=== PATIENT | male | born 1975 ===

== ENCOUNTER 2018-07-30 05:23 | Inpatient (IN) | payer OTHER ==
[2018-07-30 06:03] LABS: Basophils # (Auto) 0.1 K/mm3 (0.0-0.1); Basophils % (Auto) 0.4 % (0.0-1.8); Eosinophils # (Auto) 0.2 K/mm3 (0.0-0.4); Hematocrit 43.7 % (35.5-45.6); Hemoglobin 15.3 gm/dl (11.8-15.2); Lymphocytes # (Auto) 2.9 K/mm3 (1.2-5.4); Lymphocytes % (Auto) 19.3 % (13.4-35.0); Mean Corpuscular HGB Conc 35 % (32-34); Mean Corpuscular Volume 87 fl (84-94); Monocytes # (Auto) 0.9 K/mm3 (0.0-0.8); Monocytes % (Auto) 5.8 % (0.0-7.3); Platelet Count 233 K/mm3 (140-440); Red Blood Count 5.04 M/mm3 (3.65-5.03); Red Cell Distribution Width 12.8 % (13.2-15.2)
[2018-07-30 06:20] LABS: Alanine Aminotransferase 14 units/L (7-56); Albumin 4.3 g/dL (3.9-5); BUN/Creatinine Ratio 17; Blood Urea Nitrogen 12 mg/dL (9-20); Calcium 9.4 mg/dL (8.4-10.2); Hemolysis Index 14
[2018-07-30] MEDS ORDERED: DILAUDID IV ONE ×2 (06:38→11:50)
[2018-07-30] MEDS ORDERED: NACL 0.9% 1000 ML 1,000 ML IV ONE (06:38)
[2018-07-30] MEDS ORDERED: ZOFRAN IV ONE (06:38)
--- NOTE | 2018-07-30 06:39 | Emergency Department Report ---
ED Abdominal Pain HPI - General Chief Complaint: Abdominal Pain Stated Complaint: ABD PAIN Time Seen by Provider: 07/30/18 06:32 Source: patient, family Mode of arrival: Ambulatory Limitations: No Limitations - History of Present Illness Initial Comments: Patient is a 42-year-old male that S emergency room with complaints of upper abdominal pain and nausea vomiting. Patient states his upper abdominal pain started 2 weeks ago. Patient states her last 2 weeks his abdominal pain has been intermittent but 5 hours ago it became constant. Patient states the pain in his abdomen is out of 10. Patient states he also had nausea and vomiting but the nausea and vomiting going on for only 5 hours. Patient denies blood in his stool and blood in his vomitus. Patient denies fever and chills. Patient states the pain is better with rest and worse with eating and movement. MD Complaint: abdominal pain -: Sudden Location: LUQ, RUQ Radiation: none Migration to: no migration Severity: severe Severity scale (0 -10): 10 Quality: stabbing Consistency: constant Improves With: rest Worsens With: eating, movement Associated Symptoms: nausea, vomiting. denies: diarrhea, fever, chills, constipation, dysuria, hematemesis, hematochezia, melena, hematuria, syncope - Related Data Home Medications Medication Instructions Recorded Confirmed Last Taken No Known Home Medications [No 07/30/18 07/30/18 Unknown Reported Home Medications] Allergies Allergy/AdvReac Type Severity Reaction Status Date / Time No Known Allergies Allergy Unverified 07/30/18 05:34 ED Review of Systems ROS: Stated complaint: ABD PAIN Other details as noted in HPI Constitutional: denies: chills, fever Eyes: denies: eye pain, eye discharge, vision change ENT: denies: ear pain, throat pain Respiratory: denies: cough, shortness of breath, wheezing Cardiovascular: denies: chest pain, palpitations Endocrine: no symptoms reported Gastrointestinal: denies: abdominal pain, nausea, diarrhea Genitourinary: denies: urgency, dysuria Musculoskeletal: denies: back pain, joint swelling, arthralgia Skin: denies: rash, lesions Neurological: denies: headache, weakness, paresthesias Psychiatric: denies: anxiety, depression Hematological/Lymphatic: denies: easy bleeding, easy bruising ED Past Medical Hx - Past Medical History Previous Medical History?: Yes Hx Diabetes: Yes - Surgical History Past Surgical History?: No - Family History Family history: no significant - Social History Smoking Status: Current Every Day Smoker Substance Use Type: None - Medications Home Medications: Home Medications Medication Instructions Recorded Confirmed Last Taken Type No Known Home Medications [No 07/30/18 07/30/18 Unknown History Reported Home Medications] ED Physical Exam - General Limitations: No Limitations General appearance: alert, in no apparent distress - Head Head exam: Present: atraumatic, normocephalic - Eye Eye exam: Present: normal appearance - ENT ENT exam: Present: mucous membranes moist - Neck Neck exam: Present: normal inspection - Respiratory Respiratory exam: Present: normal lung sounds bilaterally. Absent: respiratory distress - Cardiovascular Cardiovascular Exam: Present: regular rate, normal rhythm. Absent: systolic murmur, diastolic murmur, rubs, gallop - GI/Abdominal GI/Abdominal exam: Present: soft, tenderness (bilateral upper abdomen tenderness to palpation), normal bowel sounds - Rectal Rectal exam: Present: deferred - Extremities Exam Extremities exam: Present: normal inspection - Back Exam Back exam: Present: normal inspection - Neurological Exam Neurological exam: Present: alert, oriented X3 - Psychiatric Psychiatric exam: Present: normal affect, normal mood - Skin Skin exam: Present: warm, dry, intact, normal color. Absent: rash ED Course Vital Signs 07/30/18 07/30/18 07/30/18 05:28 06:40 06:52 Temperature 98.4 F 98.1 F Pulse Rate 58 L 58 L Respiratory 16 16 16 Rate Blood Pressure 188/91 Blood Pressure 174/88 [Left] O2 Sat by Pulse 100 100 Oximetry 07/30/18 07/30/18 07/30/18 07:01 08:45 10:00 Temperature Pulse Rate 67 56 L 79 Respiratory 13 25 H 13 Rate Blood Pressure 166/78 158/84 148/77 Blood Pressure [Left] O2 Sat by Pulse 97 98 97 Oximetry 07/30/18 07/30/18 11:31 12:15 Temperature Pulse Rate 64 70 Respiratory 22 19 Rate Blood Pressure 132/77 143/75 Blood Pressure [Left] O2 Sat by Pulse 97 95 Oximetry - Reevaluation(s) Reevaluation #1: Patient states his pain is better. Patient CT back and shows gallbladder phonation. Patient will have an ultrasound done. Patient agrees with plan of care. 07/30/18 09:22 - Consultations Consultation #1: General surgery paged 07/30/18 08:57 General surgery paged again 07/30/18 11:[address] Silveira. Dr. Silveira agrees with admission and clinical findings. 07/30/18 12:13 Consultation #2: Hospitalist consulted for admission. Hospitalist to admit patient. Hospitalist to assume care patient. 07/30/18 11:27 ED Medical Decision Making - Lab Data Result diagrams: 07/30/18 05:51 07/30/18 05:51 - Radiology Data Radiology results: report reviewed CT ABDOMEN PELVIS WITH CONTRAST: HISTORY: abdominal pain. COMPARISON: none. TECHNIQUE: Helical CT in 1.25mm intervals following IV contrast. Sagittal and coronal reconstructions. FINDINGS: Lung bases: Normal. Liver: The superior right hepatic lobe is cut off the [id number]. The visualized liver is normal otherwise. Biliary system: Mild diffuse gallbladder wall edema is suspected. There is suggestion of a noncalcified stone or debris in the neck of the gallbladder. The common bile duct and intrahepatic ducts are normal. Pancreas: Normal. Spleen: Normal. Kidneys/ureters/bladder: Normal. Adrenal glands: Normal. Aorta: Normal. Intestines: Normal. Appendix: Normal. Pelvic viscera: Normal. Ascites: None. Adenopathy: None. Musculoskeletal: Intact. IMPRESSION: Mild diffuse gallbladder wall thickening is identified. Suggestion of sludge or noncalcified stone in the gallbladder. Correlate for biliary symptoms. Ultrasound could provide additional information if needed. PROCEDURE: US ABDOMEN LIMITED TECHNIQUE: Grayscale and Doppler imaging of the right upper quadrant of the abdomen was performed. HISTORY: ruq paim. COMPARISONS: None FINDINGS: Pancreas: Mildly indistinct and echogenic pancreatic head and body. The tail is obscured by overlying bowel gas. Liver appearance: Normal echogenicity. No focal internal lesion.No biliary ducta l dilatation. CBD: 4.2mm. Gallbladder: There is a sludge ball within the gallbladder measures up to 2.7 cm. There is mild gallbladder wall thickening measuring up to 6 mm. There is no pericholecystic fluid. Right kidney length: 11cm. Right kidney appearance: Normal cortical thickness. No hydronephrosis. No echogenic focus or mass. IMPRESSION: Mildly indistinct and echogenic pancreatic head and body. Findings are nonspecific, but can be seen in the setting of pancreatitis. Recommend correlation with pancreatic enzymes Sludge ball within the gallbladder. Mild gallbladder wall thickening. Findings are nonspecific. Differential diagnosis includes acute cholecystitis or intrinsic liver disease. - Medical Decision Making Patient is a 42-year-old male that presents emergency room with complaints of right upper quadrant pain. Patient found to have elevated white count. Patient also complained of nausea vomiting. Patient given pain medication and antiemetics. Patient had a CT of the abdomen done which show gallbladder thickening. Follow up study done with a ultrasound to ensure no obstruction was noted. LFTs normal. Patient to be admitted to the hospitalist service. General surgery consult for acute cholecystitis and possible gall bladder removal. - Differential Diagnosis acute cholecystitis. Gallbladder dysfunct. upper abd pain. N/D Critical Care Time: Yes Critical care attestation.: If time is entered above; I have spent that time in minutes in the direct care of this critically ill patient, excluding procedure time. Critical Care Time: 35 minutes ED Disposition Clinical Impression: Acute cholecystitis Abdominal pain Qualifiers: Abdominal location: upper abdomen, unspecified Qualified Code(s): R10.10 - Upper abdominal pain, unspecified Nausea & vomiting Qualifiers: Vomiting type: unspecified Vomiting Intractability: intractable Qualified Code(s): R11.2 - Nausea with vomiting, unspecified Disposition: DC-09 OP ADMIT IP TO THIS HOSP Is pt being admited?: Yes Does the pt Need Aspirin: No Condition: Critical Time of Disposition: 11:28
[2018-07-30 06:57] LABS: Bilirubin,Urine NEG (Negative); Blood,Urine SM (Negative); Color,Urine Straw (Yellow); Protein,Urine <15 mg/dL mg/dL (Negative); Urobilinogen,Urine < 2.0 mg/dL (<2.0); WBC,Urine < 1.0 /HPF (0.0-6.0)
--- NOTE | 2018-07-30 08:47 | Cat Scan Report ---
CT ABDOMEN PELVIS WITH CONTRAST: HISTORY: abdominal pain. COMPARISON: none. TECHNIQUE: Helical CT in 1.25mm intervals following IV contrast. Sagittal and coronal reconstructions. FINDINGS: Lung bases: Normal. Liver: The superior right hepatic lobe is cut off the [id number]. The visualized liver is normal otherwise. Biliary system: Mild diffuse gallbladder wall edema is suspected. There is suggestion of a noncalcified stone or debris in the neck of the gallbladder. The common bile duct and intrahepatic ducts are normal. Pancreas: Normal. Spleen: Normal. Kidneys/ureters/bladder: Normal. Adrenal glands: Normal. Aorta: Normal. Intestines: Normal. Appendix: Normal. Pelvic viscera: Normal. Ascites: None. Adenopathy: None. Musculoskeletal: Intact. IMPRESSION: Mild diffuse gallbladder wall thickening is identified. Suggestion of sludge or noncalcified stone in the gallbladder. Correlate for biliary symptoms. Ultrasound could provide additional information if needed.
[2018-07-30] MEDS ORDERED: ZOSYN/NS 3.375GM/50ML 3.375 GM/50 ML BAG IV ONE (09:00)
--- NOTE | 2018-07-30 10:25 | Ultrasound Report ---
PROCEDURE: US ABDOMEN LIMITED TECHNIQUE: Grayscale and Doppler imaging of the right upper quadrant of the abdomen was performed. HISTORY: ruq paim. COMPARISONS: None FINDINGS: Pancreas: Mildly indistinct and echogenic pancreatic head and body. The tail is obscured by overlying bowel gas. Liver appearance: Normal echogenicity. No focal internal lesion.No biliary ductal dilatation. CBD: 4.2mm. Gallbladder: There is a sludge ball within the gallbladder measures up to 2.7 cm. There is mild gallb ladder wall thickening measuring up to 6 mm. There is no pericholecystic fluid. Right kidney length: 11cm. Right kidney appearance: Normal cortical thickness. No hydronephrosis. No echogenic focus or mass. IMPRESSION: Mildly indistinct and echogenic pancreatic head and body. Findings are nonspecific, but can be seen i n the setting of pancreatitis. Recommend correlation with pancreatic enzymes Sludge ball within the gallbladder. Mild gallbladder wall thickening. Findings are nonspecific. Diffe rential diagnosis includes acute cholecystitis or intrinsic liver disease. This document is electronically signed by Mónica Perry MD., July 30 2018 10:23:09 AM ET
[2018-07-30] MEDS ORDERED: DILAUDID ONE (11:52)
--- NOTE | 2018-07-30 18:44 | Consultation ---
History of Present Illness Consult date: 07/30/18 Reason for consult: abdominal pain Requesting physician: MICHELE SUN III Chief complaint: abdominal pain - History of present illness History of present illness: 42yo Mexican speaking gentleman presents with 1 month history of upper abdominal pain and back pain. Some nausea. Pain exacerbated by greasy foods. Pain worsened over last few days. ED w/u revealed thickened GB with sludge. No F/C. Pain persists now. +bloating. no diarrhea. 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 denies: alcohol abuse (occasional use), prescription drug abuse, IV drug use Family history: no significant family history Medications and Allergies Allergies Allergy/AdvReac Type Severity Reaction Status Date / Time No Known Allergies Allergy Unverified 07/30/18 05:34 Home Medications Medication Instructions Recorded Confirmed Last Taken Type No Known Home Medications [No 07/30/18 07/30/18 Unknown History Reported Home Medications] Review of Systems - Constitutional no fever, no chills - Cardiovascular no chest pain, no shortness of breath - Respiratory no cough - Gastrointestinal abdominal pain, nausea, dyspepsia/bloating, no vomiting, no diarrhea, no hematemesis, no coffee ground emesis, no BRBPR, no melena, no hematochezia Exam Vital Signs Temp Pulse Resp BP Pulse Ox 98.4 F 58 L 16 188/91 100 07/30/18 05:28 07/30/18 05:28 07/30/18 05:28 07/30/18 05:28 07/30/18 05:28 - General physical appearance Positive: no distress, no pain, other (Mexican speaking, pleasant gentleman) - Eyes Positive: normal occular movement. Negative: icteric - Respiratory Positive: normal expansion, normal respiratory effort, clear to auscultation - Cardiovascular Rhythm: regular - Abdomen Abdomen: Present: soft. Absent: tender, distended, guarding, rigid, wound, surgical scars - Integumentary no rash, no growths, no abnormal pigmentation - Neurologic Neurologic: alert and oriented to time, place and person - Psychiatric Psychiatric: appropriate mood/affect, intact judgment & insight, cooperative Results - Labs 07/30/18 05:51 07/30/18 05:51 Abnormal lab results 07/30/18 07/30/18 07/30/18 Range/Units 05:40 05:51 05:51 WBC 15.1 H (4.5-11.0) K/mm3 RBC 5.04 H (3.65-5.03) M/mm3 Hgb 15.3 H (11.8-15.2) gm/dl MCHC 35 H (32-34) % RDW 12.8 L (13.2-15.2) % Nance # 0.9 H (0.0-0.8) K/mm3 Seg Neutrophils % 73.5 H (40.0-70.0) % Seg Neutrophils # 11.1 H (1.8-7.7) K/mm3 Chloride 97.9 L (98-107) mmol/L Creatinine 0.7 L (0.8-1.5) mg/dL Glucose 419 H (75-100) mg/dL POC Glucose 381 H (70-105) Diabetes panel 07/30/18 Range/Units 05:51 Sodium 137 (137-145) mmol/L Potassium 4.0 (3.6-5.0) mmol/L Chloride 97.9 L (98-107) mmol/L Carbon Dioxide 24 (22-30) mmol/L BUN 12 (9-20) mg/dL Creatinine 0.7 L (0.8-1.5) mg/dL Glucose 419 H (75-100) mg/dL Calcium 9.4 (8.4-10.2) mg/dL AST 14 (5-40) units/L ALT 14 (7-56) units/L Alkaline Phosphatase 80 (35-129) units/L Total Protein 7.1 (6.3-8.2) g/dL Albumin 4.3 (3.9-5) g/dL Calcium panel 07/30/18 Range/Units 05:51 Calcium 9.4 (8.4-10.2) mg/dL Albumin 4.3 (3.9-5) g/dL Pituitary panel 07/30/18 Range/Units 05:51 Sodium 137 (137-145) mmol/L Potassium 4.0 (3.6-5.0) mmol/L Chloride 97.9 L (98-107) mmol/L Carbon Dioxide 24 (22-30) mmol/L BUN 12 (9-20) mg/dL Creatinine 0.7 L (0.8-1.5) mg/dL Glucose 419 H (75-100) mg/dL Calcium 9.4 (8.4-10.2) mg/dL Adrenal panel 07/30/18 Range/Units 05:51 Sodium 137 (137-145) mmol/L Potassium 4.0 (3.6-5.0) mmol/L Chloride 97.9 L (98-107) mmol/L Carbon Dioxide 24 (22-30) mmol/L BUN 12 (9-20) mg/dL Creatinine 0.7 L (0.8-1.5) mg/dL Glucose 419 H (75-100) mg/dL Calcium 9.4 (8.4-10.2) mg/dL Total Bilirubin 0.90 (0.1-1.2) mg/dL AST 14 (5-40) units/L ALT 14 (7-56) units/L Alkaline Phosphatase 80 (35-129) units/L Total Protein 7.1 (6.3-8.2) g/dL Albumin 4.3 (3.9-5) g/dL - Imaging CT scan - abdomen: report reviewed, image reviewed CT scan - pelvis: report reviewed, image reviewed US - abdomen: report reviewed, image reviewed Assessment and Plan - Patient Problems (1) Cholecystitis Current Visit: Yes Status: Acute Plan to address problem: Pt stable. By history, this sounds more like chronic cholecystitis. He may have acute on chronic cholecystitits. Gave various options. Pt would like to have surgery. Procedure, risks, benefits discussed for robotic assisted cholecystectomy. All questions answered. Consent obtained. Will work on scheduling surgery. Please call with questions. Time=30min
--- NOTE | 2018-07-30 20:04 | History and Physical Report ---
History of Present Illness Date of examination: 07/30/18 Date of admission: 07/30/18 11:30 Chief complaint: Right upper quadrant pain for 2 weeks History of present illness: 42-year-old Estonian-speaking male with no significant past medical history except diabetes comes in for right upper quadrant pain of 2 weeks' duration. Right upper quadrant pain is about 10 on a scale of 1-10 associated with nausea and vomiting intermittently. Has been constant for the last few hours. Vomited 3-4 times. No fever or chills. No exacerbating or relieving factors. Exacerb ated by eating Past Medical History Previous Medical History?: Yes Hx Diabetes: Yes Surgical History Past Surgical History?: No Family History Family history: no significant Social History Smoking Status: Current Every Day Smoker Substance Use Type: None Medications Home Medications: Home Medications Medication Instructions Recorded Confirmed Last Taken Type No Known Home Medications [No 07/30/18 07/30/18 Unknown History Reported Home Medications] Review of Systems ROS: Stated complaint: ABD PAIN Other details as noted in HPI Constitutional: denies: chills, fever Eyes: denies: eye pain, eye discharge, vision change ENT: denies: ear pain, throat pain Respiratory: denies: cough, shortness of breath, wheezing Cardiovascular: denies: chest pain, palpitations Endocrine: no symptoms reported Gastrointestinal: Right upper quadrant pain and nausea and vomiting. Pain is 10 on a scale of 1-10 Genitourinary: denies: urgency, dysuria Musculoskeletal: denies: back pain, joint swelling, arthralgia Skin: denies: rash, lesions Neurological: denies: headache, weakness, paresthesias Psychiatric: denies: anxiety, depression Hematological/Lymphatic: denies: easy bleeding, easy bruising 14 point review of systems and otherwise negative Medications and Allergies Allergies Allergy/AdvReac Type Severity Reaction Status Date / Time No Known Allergies Allergy Unverified 07/30/18 05:34 Home Medications Medication Instructions Recorded Confirmed Last Taken Type No Known Home Medications [No 07/30/18 07/30/18 Unknown History Reported Home Medications] Active Meds: Active Medications Acetaminophen/Hydrocodone Bitart ([place] 5/325) 2 each PO Q6H PRN PRN Reason: Pain, Moderate (4-6) Hydromorphone HCl (Dilaudid) 0.5 mg IV Q3H PRN PRN Reason: Pain , Severe (7-10) Exam - Constitutional Vitals: Temp Pulse Resp BP Pulse Ox 98 F 59 L 18 155/80 97 07/30/18 16:04 07/30/18 16:04 07/30/18 16:04 07/30/18 16:04 07/30/18 15:56 General appearance: Present: mild distress, well-nourished - EENT Eyes: Present: PERRL ENT: hearing intact, clear oral mucosa - Neck Neck: Present: supple, normal ROM - Respiratory Respiratory effort: normal Respiratory: bilateral: CTA - Cardiovascular Heart rate: 88 Rhythm: regular Heart Sounds: Present: S1 & S2. Absent: rub, click - Extremities Extremities: no ischemia, pulses intact, pulses symmetrical, No edema Peripheral Pulses: within normal limits - Abdominal General gastrointestinal: Present: soft, tender, non-distended, normal bowel sounds Localized gastrointestinal: tender: RUQ, guarding: RUQ, rebound: RUQ Male genitourinary: Present: normal - Rectal Rectal Exam: deferred - Integumentary Integumentary: Present: clear, warm, dry - Musculoskeletal Musculoskeletal: gait normal, strength equal bilaterally - Psychiatric Psychiatric: appropriate mood/affect, intact judgment & insight - Neurologic Neurologic: CNII-XII intact, moves all extremities Results - Labs CBC & Chem 7: 07/30/18 05:51 07/30/18 05:51 Labs: Laboratory Last Values WBC 15.1 K/mm3 (4.5-11.0) H 07/30/18 05:51 RBC 5.04 M/mm3 (3.65-5.03) H 07/30/18 05:51 Hgb 15.3 gm/dl (11.8-15.2) H 07/30/18 05:51 Hct 43.7 % (35.5-45.6) 07/30/18 05:51 MCV 87 fl (84-94) 07/30/18 05:51 MCH 30 pg (28-32) 07/30/18 05:51 MCHC 35 % (32-34) H 07/30/18 05:51 RDW 12.8 % (13.2-15.2) L 07/30/18 05:51 Plt Count 233 K/mm3 (140-440) 07/30/18 05:51 Lymph % (Auto) 19.3 % (13.4-35.0) 07/30/18 05:51 [place] % (Auto) 5.8 % (0.0-7.3) 07/30/18 05:51 Eos % (Auto) 1.0 % (0.0-4.3) 07/30/18 05:51 Baso % (Auto) 0.4 % (0.0-1.8) 07/30/18 05:51 Lymph # 2.9 K/mm3 (1.2-5.4) 07/30/18 05:51 [place] # 0.9 K/mm3 (0.0-0.8) H 07/30/18 05:51 Eos # 0.2 K/mm3 (0.0-0.4) 07/30/18 05:51 Baso # 0.1 K/mm3 (0.0-0.1) 07/30/18 05:51 Seg Neutrophils % 73.5 % (40.0-70.0) H 07/30/18 05:51 Seg Neutrophils # 11.1 K/mm3 (1.8-7.7) H 07/30/18 05:51 Sodium 137 mmol/L (137-145) 07/30/18 05:51 Potassium 4.0 mmol/L (3.6-5.0) 07/30/18 05:51 Chloride 97.9 mmol/L (98-107) L 07/30/18 05:51 Carbon Dioxide 24 mmol/L (22-30) 07/30/18 05:51 19 mmol/L 07/30/18 05:51 BUN 12 mg/dL (9-20) 07/30/18 05:51 0.7 mg/dL (0.8-1.5) L 07/30/18 05:51 Estimated GFR > 60 ml/min 07/30/18 05:51 17 % 07/30/18 05:51 Glucose 419 mg/dL (75-100) H 07/30/18 05:51 POC Glucose 381 (70-105) H 07/30/18 05:40 Calcium 9.4 mg/dL (8.4-10.2) 07/30/18 05:51 0.90 mg/dL (0.1-1.2) 07/30/18 05:51 AST 14 units/L (5-40) 07/30/18 05:51 ALT 14 units/L (7-56) 07/30/18 05:51 80 units/L (35-129) 07/30/18 05:51 7.1 g/dL (6.3-8.2) 07/30/18 05:51 4.3 g/dL (3.9-5) 07/30/18 05:51 1.5 % 07/30/18 05:51 38 units/L (13-60) 07/30/18 05:51 Straw (Yellow) 07/30/18 Unknown Clear (Clear) 07/30/18 Unknown 6.0 (5.0-7.0) 07/30/18 Unknown Ur Specific [place] 1.018 (1.003-1.030) 07/30/18 Unknown <15 mg/dl mg/dL (Negative) 07/30/18 Unknown >=500 mg/dL (Negative) 07/30/18 Unknown Tr mg/dL (Negative) 07/30/18 Unknown Sm (Negative) 07/30/18 Unknown Neg (Negative) 07/30/18 Unknown Neg (Negative) 07/30/18 Unknown < 2.0 mg/dL (<2.0) 07/30/18 Unknown Ur Leukocyte Esterase Neg (Negative) 07/30/18 Unknown < 1.0 /HPF (0.0-6.0) 07/30/18 Unknown 1.0 /HPF (0.0-6.0) 07/30/18 Unknown U Epithel Cells (Auto) < 1.0 /HPF (0-13.0) 07/30/18 Unknown Short CBC 07/30/18 Range/Units 05:51 WBC 15.1 H (4.5-11.0) K/mm3 Hgb 15.3 H (11.8-15.2) gm/dl Hct 43.7 (35.5-45.6) % Plt Count 233 (140-440) K/mm3 BMP 07/30/18 05:51 Sodium 137 Potassium 4.0 Chloride 97.9 L Carbon Dioxide 24 BUN 12 Creatinine 0.7 L Glucose 419 H Calcium 9.4 Liver Function 07/30/18 Range/Units 05:51 Total Bilirubin 0.90 (0.1-1.2) mg/dL AST 14 (5-40) units/L ALT 14 (7-56) units/L Alkaline Phosphatase 80 (35-129) units/L Albumin 4.3 (3.9-5) g/dL Urine 07/30/18 Range/Units Unknown Urine Color Straw (Yellow) Urine pH 6.0 (5.0-7.0) Ur Specific [place] 1.018 (1.003-1.030) Urine Protein <15 mg/dl (Negative) mg/dL Urine Glucose (UA) >=500 (Negative) mg/dL - Imaging and Cardiology CT scan - abdomen: report reviewed US - abdomen: report reviewed Imaging and Cardiology: CT abdomen/pelvis IMPRESSION: Mild diffuse gallbladder wall thickening is identified. Suggestion of sludge or noncalcified stone in the gallbladder. Correlate for biliary symptoms. Ultrasound could provide additional information if needed. ABDOMEN ultrasound IMPRESSION: Mildly indistinct and echogenic pancreatic head and body. Findings are nonspecific, but can be seen in the setting of pancreatitis. Recommend correlation with pancreatic enzymes Sludge ball within the gallbladder. Mild gallbladder wall thickening. Findings are nonspecific. Differential diagnosis includes acute cholecystitis or intrinsic liver disease. Assessment and Plan Advance Directives: Yes (full code) VTE prophylaxis?: Chemical Plan of care discussed with patient/family: Yes - Patient Problems (1) SIRS (systemic inflammatory response syndrome) Current Visit: Yes Status: Acute Plan to address problem: Patient initiated on IV Zosyn for acute cholecystitis Patient has leukocytosis (2) Acute cholecystitis Current Visit: Yes Status: Acute Plan to address problem: Surgery consult requested IV Zosyn initiated Patient is kept nothing by mouth (3) Type 2 diabetes mellitus Current Visit: Yes Status: Chronic Qualifiers: Diabetes mellitus senior care insulin use: without termite treater use Plan to address problem: Accu-Cheks and high dose sliding scale coverage Check A1c Patient may need to be discharged on NovoLog mix twice a day (4) DVT prophylaxis Current Visit: Yes Status: Acute Plan to address problem: On Lovenox and GI prophylaxis
[2018-07-30] MEDS ORDERED: SODIUM CHLORIDE FLUSH SYRINGE 10 ML IV PRN (20:15)
[2018-07-30] MEDS ORDERED: REGLAN IV PRN (20:15)
[2018-07-30] MEDS ORDERED: ZOFRAN IV PRN (20:15)
[2018-07-30] MEDS ORDERED: TYLENOL PO PRN (20:15)
[2018-07-30] MEDS: NACL 0.9% 1000 ML 1,000 ML IV SCH (21:10)
[2018-07-30] MEDS: ZOSYN/NS 4.5GM/100ML 4.5 GM/100 ML VIAL IV SCH (21:10)
[2018-07-30] MEDS: PEPCID IV SCH (21:10)
[2018-07-30] MEDS: SODIUM CHLORIDE FLUSH SYRINGE 10 ML IV SCH (21:12)
[2018-07-31] MEDS ORDERED: D50W (25GM) Syringe IV PRN (00:49)
[2018-07-31] MEDS: ZOSYN/NS 4.5GM/100ML 4.5 GM/100 ML VIAL IV SCH ×3 (05:18→21:47)
[2018-07-31] MEDS: HumaLOG SUB-Q SCH ×3 (06:42→17:23)
[2018-07-31] MEDS: PEPCID IV SCH ×2 (09:49→21:53)
[2018-07-31] MEDS: SODIUM CHLORIDE FLUSH SYRINGE 10 ML IV SCH ×2 (09:51→21:53)
[2018-07-31] MEDS: NACL 0.9% 1000 ML 1,000 ML IV SCH ×2 (09:53→22:03)
[2018-07-31 10:30] LABS: Basophils % (Auto) 0.3 % (0.0-1.8); Eosinophils % (Auto) 0.3 % (0.0-4.3); Hematocrit 42.7 % (35.5-45.6); Hemoglobin 14.7 gm/dl (11.8-15.2); Lymphocytes # (Auto) 1.7 K/mm3 (1.2-5.4); Mean Corpuscular HGB Conc 34 % (32-34); Mean Corpuscular Volume 88 fl (84-94); Monocytes # (Auto) 1.2 K/mm3 (0.0-0.8); Monocytes % (Auto) 7.4 % (0.0-7.3); Platelet Count 198 K/mm3 (140-440); Red Blood Count 4.87 M/mm3 (3.65-5.03); Red Cell Distribution Width 12.9 % (13.2-15.2)
[2018-07-31 10:32] LABS: Alanine Aminotransferase 12 units/L (7-56); Albumin 3.7 g/dL (3.9-5); BUN/Creatinine Ratio 10; Blood Urea Nitrogen 7 mg/dL (9-20); Calcium 8.6 mg/dL (8.4-10.2); Hemolysis Index 14
[2018-07-31] MEDS ORDERED: LANTUS SUB-Q ONE (16:14)
--- NOTE | 2018-07-31 16:14 | Progress Note ---
Assessment and Plan Assessment and plan: (1) SIRS (systemic inflammatory response syndrome) Current Visit: Yes Status: Acute Plan to address problem: Patient initiated on IV Zosyn for acute cholecystitis Patient has leukocytosis (2) Acute cholecystitis Current Visit: Yes Status: Acute Plan to address problem: Surgery consulted and will do cholecystectomy tomorrow IV Zosyn initiated Patient is kept nothing by mouth (3) Type 2 diabetes mellitus Current Visit: Yes Status: Chronic Qualifiers: Diabetes mellitus fpc insulin use: without fpc use Plan to address problem: Accu-Cheks and high dose sliding scale coverage A1c is 11 Patient may need to be discharged on NovoLog mix twice a day (4) DVT prophylaxis Current Visit: Yes Status: Acute Plan to address problem: On Lovenox and GI prophylaxis History Interval history: Patient was seen and evaluated this morning, since abdominal pain is getting better. Hospitalist Physical - Physical exam Narrative exam: Not in cardiopulmonary distress. The patient is obese. Vital signs as documented. Head exam is unremarkable. No scleral icterus . Neck is without jugular venous distension, thyromegaly, or carotid bruits. Lungs are clear to auscultation. Cardiac exam reveals regular rate and Rhythm. First and second heart sounds normal. No murmurs, rubs or gallops. Abdominal exam reveals mild right upper quadrant tenderness. Extremities are nonedematous and both femoral and pedal pulses are normal. SUPERINTENDENT METERS: Alert and oriented 3. No focal weakness. - Constitutional Vitals: Temp Pulse Resp BP Pulse Ox 99 F 76 18 137/75 97 07/31/18 08:00 07/31/18 08:17 07/31/18 08:00 07/31/18 08:00 07/31/18 08:17 General appearance: Present: mild distress, well-nourished Results - Labs CBC & Chem 7: 07/31/18 09:29 07/31/18 09:29 Labs: Laboratory Last Values WBC 15.7 K/mm3 (4.5-11.0) H 07/31/18 09:29 RBC 4.87 M/mm3 (3.65-5.03) 07/31/18 09:29 Hgb 14.7 gm/dl (11.8-15.2) 07/31/18 09:29 Hct 42.7 % (35.5-45.6) 07/31/18 09:29 MCV 88 fl (84-94) 07/31/18 09: MCH 30 pg (28-32) 07/31/18 09: MCHC 34 % (32-34) 07/31/18 09: RDW 12.9 % (13.2-15.2) L 07/31/18 09:29 Plt Count 198 K/mm3 (140-440) 07/31/18 09: Lymph % (Auto) 11.0 % (13.4-35.0) L 07/31/18 09:29 [place] % (Auto) 7.4 % (0.0-7.3) H 07/31/18 09: Eos % (Auto) 0.3 % (0.0-4.3) 07/31/18 09: Baso % (Auto) 0.3 % (0.0-1.8) 07/31/18 09: Lymph # 1.7 K/mm3 (1.2-5.4) 07/31/18 09: [place] # 1.2 K/mm3 (0.0-0.8) H 07/31/18 09:29 Eos # 0.0 K/mm3 (0.0-0.4) 07/31/18 09: Baso # 0.0 K/mm3 (0.0-0.1) 07/31/18 09: Seg Neutrophils % 81.0 % (40.0-70.0) H 07/31/18 09: Seg Neutrophils # 12.7 K/mm3 (1.8-7.7) H 07/31/18 09:29 Sodium 138 mmol/L (137-145) 07/31/18 09:29 Potassium 3.6 mmol/L (3.6-5.0) 07/31/18 09: Chloride 99.8 mmol/L (98-107) 07/31/18 09: Carbon Dioxide 25 mmol/L (22-30) 07/31/18 09:29 17 mmol/L 07/31/18 09:29 BUN 7 mg/dL (9-20) L 07/31/18 09:29 0.7 mg/dL (0.8-1.5) L 07/31/18 09:29 Estimated GFR > 60 ml/min 07/31/18:29 10 % 07/31/18 09:29 Glucose 251 mg/dL (75-100) H 07/31/18 09:29 POC Glucose 205 (70-105) H 07/31/18 11:39 11.0 % (4-6) H 07/30/18 20:27 Calcium 8.6 mg/dL (8.4-10.2) 07/31/18 09:29 1.50 mg/dL (0.1-1.2) H 07/31/18 09:29 AST 11 units/L (5-40) 07/31/18 09:29 ALT 12 units/L (7-56) 07/31/18 09:29 72 units/L (35-129) 07/31/18 09:29 6.6 g/dL (6.3-8.2) 07/31/18 09:29 3.7 g/dL (3.9-5) L 07/31/18 09:29 1.3 % 07/31/18 09:29 38 units/L (13-60) 07/30/18 05:51 Straw (Yellow) 07/30/18 Unknown Clear (Clear) 07/30/18 Unknown 6.0 (5.0-7.0) 07/30/18 Unknown Ur Specific [place] 1.018 (1.003-1.030) 07/30/18 Unknown <15 mg/dl mg/dL (Negative) 07/30/18 Unknown >=500 mg/dL (Negative) 07/30/18 Unknown Tr mg/dL (Negative) 07/30/18 Unknown Sm (Negative) 07/30/18 Unknown Neg (Negative) 07/30/18 Unknown Neg (Negative) 07/30/18 Unknown < 2.0 mg/dL (<2.0) 07/30/18 Unknown Ur Leukocyte Esterase Neg (Negative) 07/30/18 Unknown < 1.0 /HPF (0.0-6.0) 07/30/18 Unknown 1.0 /HPF (0.0-6.0) 07/30/18 Unknown U Epithel Cells (Auto) < 1.0 /HPF (0-13.0) 07/30/18 Unknown Active Medications - Current Medications Current Medications: Generic Name Dose Route Start Last Admin Trade Name Freq PRN Reason Stop Dose Admin Acetaminophen 650 mg 07/30/18 20:15 Tylenol PO Q4H PRN Pain MILD(1-3)/Fever >100.5/CARROLL Acetaminophen/Hydrocodone Bitart 2 each 07/30/18 18:43 [place] 5/325 PO Q6H PRN Pain, Moderate (4-6) Dextrose 50 ml 07/31/18 00:49 D50w (25gm) Syringe IV PRN PRN Hypoglycemia Enoxaparin Sodium 40 mg 07/31/18 22:00 Lovenox SUB-Q QDAY@2200 CIARA Famotidine 20 mg 07/30/18 22:00 07/31/18 09:49 Pepcid IV 20 mg BID CIARA Administration Hydromorphone HCl 0.5 mg 07/30/18 18:43 Dilaudid IV Q3H PRN Pain , Severe (7-10) Sodium Chloride 1,000 mls @ 75 mls/hr 07/30/18 21:00 07/31/18 09:53 Nacl 0.9% 1000 Ml IV 75 mls/hr DIRECT CIARA Administration Piperacillin Sod/Tazobactam Sod 4.5 gm in 100 mls @ 200 mls/hr 07/30/18 22:00 07/31/18 14:57 Zosyn/Ns 4.5gm/100ml IV 200 mls/hr Q8HR CIARA Administration Protocol Insulin Human Lispro 0 unit 07/31/18 06:00 07/31/18 13:27 Humalog SUB-Q Not Given Q6HR [facility] Protocol Metoclopramide HCl 10 mg 07/30/18 20:15 Reglan IV Q6H PRN Nausea And Vomiting Ondansetron HCl 4 mg 07/30/18 20:15 Zofran IV Q3H PRN Nausea And Vomiting Sodium Chloride 10 ml 07/30/18 22:00 07/31/18 09:51 Sodium Chloride Flush Syringe 10 Ml IV 10 ml BID CIARA Administration Sodium Chloride 10 ml 07/30/18 20:15 Sodium Chloride Flush Syringe 10 Ml IV PRN PRN LINE FLUSH
--- NOTE | 2018-07-31 17:56 | Progress Note ---
Assessment and Plan - Patient Problems (1) Cholecystitis Current Visit: Yes Status: Acute Plan to address problem: Pt stable. Plan for surgery tomorrow. Consent already obtained. Please call with questions. Time=10min Subjective Date of service: 07/31/18 Patient Reports: Positive: feels better, still having pain. Negative: nausea, vomiting Objective Vital Signs - 12hr 07/31/18 07/31/18 07/31/18 08:00 08:17 11:35 Temperature 99 F Pulse Rate 81 76 69 Respiratory 18 Rate Blood Pressure Blood Pressure 137/75 [Left] O2 Sat by Pulse 97 97 Oximetry 07/31/18 07/31/18 15:16 15:17 Temperature 99.3 F Pulse Rate 66 65 Respiratory 19 Rate Blood Pressure 163/79 Blood Pressure [Left] O2 Sat by Pulse 97 98 Oximetry - General physical appearance no distress, no pain - Eyes normal occular movement - Respiratory normal expansion, normal respiratory effort - Abdomen soft, tender (in upper abdomen), not guarding, not rigid, not surgical scars - Integumentary no rash, no growths, no abnormal pigmentation - Psychiatric oriented to time, oriented to person, oriented to place, speech is normal, memory intact - Labs 07/31/18 09:29 07/31/18 09:29 Diabetes panel 07/30/18 07/31/18 Range/Units 20:27 09:29 Sodium 138 (137-145) mmol/L Potassium 3.6 (3.6-5.0) mmol/L Chloride 99.8 (98-107) mmol/L Carbon Dioxide 25 (22-30) mmol/L BUN 7 L (9-20) mg/dL Creatinine 0.7 L (0.8-1.5) mg/dL Glucose 251 H (75-100) mg/dL Hemoglobin A1c 11.0 H (4-6) % Calcium 8.6 (8.4-10.2) mg/dL AST 11 (5-40) units/L ALT 12 (7-56) units/L Alkaline Phosphatase 72 (35-129) units/L Total Protein 6.6 (6.3-8.2) g/dL Albumin 3.7 L (3.9-5) g/dL Calcium panel 07/31/18 Range/Units 09:29 Calcium 8.6 (8.4-10.2) mg/dL Albumin 3.7 L (3.9-5) g/dL Pituitary panel 07/31/18 Range/Units 09:29 Sodium 138 (137-145) mmol/L Potassium 3.6 (3.6-5.0) mmol/L Chloride 99.8 (98-107) mmol/L Carbon Dioxide 25 (22-30) mmol/L BUN 7 L (9-20) mg/dL Creatinine 0.7 L (0.8-1.5) mg/dL Glucose 251 H (75-100) mg/dL Calcium 8.6 (8.4-10.2) mg/dL Adrenal panel 07/31/18 Range/Units 09:29 Sodium 138 (137-145) mmol/L Potassium 3.6 (3.6-5.0) mmol/L Chloride 99.8 (98-107) mmol/L Carbon Dioxide 25 (22-30) mmol/L BUN 7 L (9-20) mg/dL Creatinine 0.7 L (0.8-1.5) mg/dL Glucose 251 H (75-100) mg/dL Calcium 8.6 (8.4-10.2) mg/dL Total Bilirubin 1.50 H (0.1-1.2) mg/dL AST 11 (5-40) units/L ALT 12 (7-56) units/L Alkaline Phosphatase 72 (35-129) units/L Total Protein 6.6 (6.3-8.2) g/dL Albumin 3.7 L (3.9-5) g/dL
[2018-07-31] MEDS: LANTUS SUB-Q SCH (21:54)
[2018-07-31] MEDS: LOVENOX SUB-Q SCH (21:54)
[2018-07-31] MEDS ORDERED: LANTUS SUB-Q SCH (22:00)
[2018-08-01 04:56] LABS: Basophils # (Auto) 0.1 K/mm3 (0.0-0.1); Basophils % (Auto) 0.3 % (0.0-1.8); Eosinophils # (Auto) 0.1 K/mm3 (0.0-0.4); Eosinophils % (Auto) 0.4 % (0.0-4.3); Hematocrit 41.8 % (35.5-45.6); Hemoglobin 14.7 gm/dl (11.8-15.2); Lymphocytes # (Auto) 1.6 K/mm3 (1.2-5.4); Lymphocytes % (Auto) 9.6 % (13.4-35.0); Mean Corpuscular HGB Conc 35 % (32-34); Mean Corpuscular Volume 87 fl (84-94); Monocytes # (Auto) 1.6 K/mm3 (0.0-0.8); Monocytes % (Auto) 9.2 % (0.0-7.3); Platelet Count 182 K/mm3 (140-440); Red Blood Count 4.82 M/mm3 (3.65-5.03); Red Cell Distribution Width 12.9 % (13.2-15.2)
[2018-08-01] MEDS: ZOSYN/NS 4.5GM/100ML 4.5 GM/100 ML VIAL IV SCH ×3 (05:20→22:18)
[2018-08-01 05:25] LABS: Alanine Aminotransferase 46 units/L (7-56); Albumin 3.7 g/dL (3.9-5); BUN/Creatinine Ratio 9; Bilirubin,Direct 0.5 mg/dL (0-0.2); Blood Urea Nitrogen 6 mg/dL (9-20); Calcium 8.7 mg/dL (8.4-10.2); Hemolysis Index 5
[2018-08-01] MEDS: DILAUDID IV PRN ×2 (05:45→17:52)
[2018-08-01] MEDS ORDERED: ANCEF/STERILE WATER 2 GM/20 ML 2 GM/20 ML SYRINGE IV SCH (06:00)
[2018-08-01] MEDS: HumaLOG SUB-Q SCH ×4 (07:23→17:38)
[2018-08-01] MEDS ORDERED: ceFAZolin 2 GM in NACL 0.9% 100 ML IV ONE (08:00)
[2018-08-01] MEDS ORDERED: ZOFRAN ONE (08:46)
[2018-08-01] MEDS ORDERED: ZEMURON IV ONE (08:46)
[2018-08-01] MEDS ORDERED: QUELICIN ONE (08:46)
[2018-08-01] MEDS ORDERED: SUBLIMAZE ONE ×2 (08:46→13:48)
[2018-08-01] MEDS ORDERED: DIPRIVAN 10 MG/ML IV ONE (08:46)
[2018-08-01] MEDS: PEPCID IV SCH ×2 (09:47→22:19)
[2018-08-01] MEDS: SODIUM CHLORIDE FLUSH SYRINGE 10 ML IV SCH (09:47)
[2018-08-01] MEDS ORDERED: ZOFRAN IV PRN (10:22)
[2018-08-01] MEDS ORDERED: SUBLIMAZE IV PRN (10:22)
[2018-08-01] MEDS ORDERED: MORPHINE IV ONE (10:23)
--- NOTE | 2018-08-01 10:24 | Anesthesia Day of Surgery ---
Anesthesia Day of Surgery - Day of Surgery Patient Examined: Yes Patient H&P Reviewed: Yes Patient is NPO: Yes
[2018-08-01] MEDS ORDERED: VERSED ONE (10:25)
[2018-08-01] MEDS ORDERED: MORPHINE ONE (10:25)
[2018-08-01] MEDS ORDERED: NACL 0.9% 1000 ML 1,000 ML ONE (10:26)
--- NOTE | 2018-08-01 10:27 | Anesthesia Consultation ---
Anesthesia Consult and Med Hx Date of service: 08/01/18 - Airway Anesthetic Teeth Evaluation: Poor (TWO LOOSE TEETH) ROM Head & Neck: Adequate Mental/Hyoid Distance: Adequate Mallampati Class: Class II Intubation Access Assessment: Good - Pre-Operative Health Status ASA Pre-Surgery Classification: ASA2, Emergency Proposed Anesthetic Plan: General - Pulmonary Hx Smoking: Yes Hx Asthma: No COPD: No Hx Pneumonia: No - Endocrine Hx End Stage Renal Disease: No Hx Non-Insulin Dependent Diabetes: Yes (FBS 148@1018) - Additional Comments Anesthesia Medical History Comments: PT is Lithuanian speaking only and son at BS to interpret. TWO LOOSE TEETH-told pt about risk of dislodging them
[2018-08-01] MEDS ORDERED: VERSED IV NR (11:00)
[2018-08-01] MEDS ORDERED: MARCAINE-EPI 0.25%-1:200,000 INFILTRATI ONE ×2 (11:40→11:49)
[2018-08-01] MEDS ORDERED: XYLOCAINE 1% 20 mL INFILTRATI ONE (11:40)
[2018-08-01] MEDS ORDERED: XYLOCAINE 1% 20 mL ONE (11:49)
[2018-08-01] MEDS ORDERED: DILAUDID ONE (12:01)
[2018-08-01] MEDS ORDERED: BLOXIVERZ ONE (13:38)
[2018-08-01] MEDS ORDERED: ROBINUL ONE ×3 (13:38→13:39)
[2018-08-01] MEDS ORDERED: TORADOL ONE ×2 (13:38→13:39)
--- NOTE | 2018-08-01 13:54 | Post Operative Note ---
Date of procedure: 08/01/18 (dictation:[id number]) Pre-op diagnosis: chronic cholecystitis Post-op diagnosis: other (acute cholecystitis) Findings: thickened, inflamed GB with adhesions. Procedure: robotic assisted cholecystectomy Anesthesia: SANAA Surgeon: ROSA ELIAS Estimated blood loss: 50-100ml Pathology: list (GB) Specimen disposition: to lab Condition: stable Disposition: PACU
--- NOTE | 2018-08-01 15:19 | Progress Note ---
Assessment and Plan Assessment and plan: (1) SIRS (systemic inflammatory response syndrome) Patient initiated on IV Zosyn for acute cholecystitis Patient has leukocytosis (2) Acute cholecystitis Surgery consulted and will do cholecystectomy tomorrow Continue IV Zosyn General surgery will do cholecystectomy today (3) Type 2 diabetes mellitus Accu-Cheks, high dose sliding scale coverage and lantus A1c is 11 Patient may need to be discharged on NovoLog mix twice a day Elevated bilirubn level - could be reactive will monitor tomorrow (4) DVT prophylaxis On Lovenox and GI prophylaxis. Disposition; possible discharge tomorrow. F/U bilirubin and WBC. History Interval history: Patient was seen and evaluated this morning, since abdominal pain is getting better. Hospitalist Physical - Physical exam Narrative exam: Not in cardiopulmonary distress. The patient is obese. Vital signs as documented. Head exam is unremarkable. No scleral icterus . Neck is without jugular venous distension, thyromegaly, or carotid bruits. Lungs are clear to auscultation. Cardiac exam reveals regular rate and Rhythm. First and second heart sounds normal. No murmurs, rubs or gallops. Abdominal exam reveals mild right upper quadrant tenderness. Extremities are nonedematous and both femoral and pedal pulses are normal. ELEMENTARY PRINCIPAL: Alert and oriented 3. No focal weakness. - Constitutional Vitals: Temp Pulse Resp BP Pulse Ox 98.6 F 84 16 101/50 98 08/01/18 14:05 08/01/18 14:45 08/01/18 14:45 08/01/18 14:45 08/01/18 14:45 General appearance: Present: mild distress, well-nourished Results - Labs CBC & Chem 7: 08/01/18 04:40 08/01/18 04:40 Labs: Laboratory Last Values WBC 17.0 K/mm3 (4.5-11.0) H 08/01/18 04:40 RBC 4.82 M/mm3 (3.65-5.03) 08/01/18 04:40 Hgb 14.7 gm/dl (11.8-15.2) 08/01/18 04:40 Hct 41.8 % (35.5-45.6) 08/01/18 04:40 MCV 87 fl (84-94) 08/01/18 04:40 MCH 30 pg (28-32) 08/01/18 04:40 MCHC 35 % (32-34) H 08/01/18 04:40 RDW 12.9 % (13.2-15.2) L 08/01/18 04:40 Plt Count 182 K/mm3 (140-440) 08/01/18 04:40 Lymph % (Auto) 9.6 % (13.4-35.0) L 08/01/18 04:40 [place] % (Auto) 9.2 % (0.0-7.3) H 08/01/18 04:40 Eos % (Auto) 0.4 % (0.0-4.3) 08/01/18 04:40 Baso % (Auto) 0.3 % (0.0-1.8) 08/01/18 04:40 Lymph # 1.6 K/mm3 (1.2-5.4) 08/01/18 04:40 [place] # 1.6 K/mm3 (0.0-0.8) H 08/01/18 04:40 Eos # 0.1 K/mm3 (0.0-0.4) 08/01/18 04:40 Baso # 0.1 K/mm3 (0.0-0.1) 08/01/18 04:40 Seg Neutrophils % 80.5 % (40.0-70.0) H 08/01/18 04:40 Seg Neutrophils # 13.6 K/mm3 (1.8-7.7) H 08/01/18 04:40 Sodium 140 mmol/L (137-145) 08/01/18 04:40 Potassium 3.4 mmol/L (3.6-5.0) L 08/01/18 04:40 Chloride 100.8 mmol/L (98-107) 08/01/18 04:40 Carbon Dioxide 26 mmol/L (22-30) 08/01/18 04:40 17 mmol/L 08/01/18 04:40 BUN 6 mg/dL (9-20) L 08/01/18 04:40 0.7 mg/dL (0.8-1.5) L 08/01/18 04:40 Estimated GFR > 60 ml/min 08/01/18 04:40 9 % 08/01/18 04:40 Glucose 154 mg/dL (75-100) H 08/01/18 04:40 POC Glucose 198 (70-105) H 08/01/18 14:43 11.0 % (4-6) H 07/30/18 20:27 Calcium 8.7 mg/dL (8.4-10.2) 08/01/18 04:40 2.10 mg/dL (0.1-1.2) H 08/01/18 04:40 0.5 mg/dL (0-0.2) H 08/01/18 04:40 1.6 mg/dL 08/01/18 04:40 AST 62 units/L (5-40) H 08/01/18 04:40 ALT 46 units/L (7-56) 08/01/18 04:40 119 units/L (35-129) 08/01/18 04:40 6.3 g/dL (6.3-8.2) 08/01/18 04:40 3.7 g/dL (3.9-5) L 08/01/18 04:40 1.4 % 08/01/18 04:40 38 units/L (13-60) 07/30/18 05:51 Straw (Yellow) 07/30/18 Unknown Clear (Clear) 07/30/18 Unknown 6.0 (5.0-7.0) 07/30/18 Unknown Ur Specific [place] 1.018 (1.003-1.030) 07/30/18 Unknown <15 mg/dl mg/dL (Negative) 07/30/18 Unknown >=500 mg/dL (Negative) 07/30/18 Unknown Tr mg/dL (Negative) 07/30/18 Unknown Sm (Negative) 07/30/18 Unknown Neg (Negative) 07/30/18 Unknown Neg (Negative) 07/30/18 Unknown < 2.0 mg/dL (<2.0) 07/30/18 Unknown Ur Leukocyte Esterase Neg (Negative) 07/30/18 Unknown < 1.0 /HPF (0.0-6.0) 07/30/18 Unknown 1.0 /HPF (0.0-6.0) 07/30/18 Unknown U Epithel Cells (Auto) < 1.0 /HPF (0-13.0) 07/30/18 Unknown Active Medications - Current Medications Current Medications: Generic Name Dose Route Start Last Admin Trade Name Freq PRN Reason Stop Dose Admin Acetaminophen 650 mg 07/30/18 20:15 Tylenol PO Q4H PRN Pain MILD(1-3)/Fever >100.5/CARROLL Acetaminophen/Hydrocodone Bitart 2 each 07/30/18 18:43 [place] 5/325 PO Q6H PRN Pain, Moderate (4-6) Dextrose 50 ml 07/31/18 00:49 D50w (25gm) Syringe IV PRN PRN Hypoglycemia Enoxaparin Sodium 40 mg 07/31/18 22:00 07/31/18 21:54 Lovenox SUB-Q 40 mg QDAY@2200 CIARA Administration Famotidine 20 mg 07/30/18 22:00 08/01/18 09:47 Pepcid IV 20 mg BID CIARA Administration Fentanyl 50 mcg 08/01/18 10:22 Sublimaze IV Q5MIN PRN Pain , Severe (7-10) Hydromorphone HCl 0.5 mg 07/30/18 18:43 08/01/18 05:45 Dilaudid IV 0.5 mg Q3H PRN Administration Pain , Severe (7-10) Sodium Chloride 1,000 mls @ 75 mls/hr 07/30/18 21:00 07/31/18 22:03 Nacl 0.9% 1000 Ml IV 75 mls/hr DIRECT CIARA Administration Piperacillin Sod/Tazobactam Sod 4.5 gm in 100 mls @ 200 mls/hr 07/30/18 22:00 08/01/18 05:20 Zosyn/Ns 4.5gm/100ml IV 200 mls/hr Q8HR CIARA Administration Protocol Cefazolin Sodium 2 gm in 20 mls @ 80 mls/hr 08/01/18 06:00 Ancef/Sterile Water 2 Gm/20 Ml IV 08/01/18 23:59 PREOP CIARA Insulin Glargine 10 units 07/31/18 22:00 07/31/18 21:54 Lantus SUB-Q 10 units QHS CIARA Administration Insulin Human Lispro 0 unit 07/31/18 06:00 08/01/18 07:24 Humalog SUB-Q Not Given Q6HR [facility] Protocol Metoclopramide HCl 10 mg 07/30/18 20:15 Reglan IV Q6H PRN Nausea And Vomiting Midazolam HCl 2 mg 08/01/18 11:00 08/01/18 10:30 Versed IV 08/01/18 23:59 2 mg PREOP NR Administration Ondansetron HCl 4 mg 07/30/18 20:15 07/31/18 21:53 Zofran IV 4 mg Q3H PRN Administration Nausea And Vomiting Ondansetron HCl 4 mg 08/01/18 10:22 Zofran IV ONCE PRN Nausea And Vomiting Sodium Chloride 10 ml 07/30/18 22:00 08/01/18 09:47 Sodium Chloride Flush Syringe 10 Ml IV 10 ml BID CIARA Administration Sodium Chloride 10 ml 07/30/18 20:15 Sodium Chloride Flush Syringe 10 Ml IV PRN PRN LINE FLUSH
[2018-08-01] MEDS: LANTUS SUB-Q SCH (22:00)
[2018-08-01] MEDS: LOVENOX SUB-Q SCH (22:18)
[2018-08-01] MEDS: NORCO 5/325 PO PRN (22:20)
--- NOTE | 2018-08-01 22:30 | Operative Report ---
PREOPERATIVE DIAGNOSIS: Chronic cholecystitis. POSTOPERATIVE DIAGNOSIS: Acute cholecystitis. ATTENDING PHYSICIAN: Shna Silveira MD ANESTHESIA: General. PROCEDURE: Robotic-assisted laparoscopic cholecystectomy. ESTIMATED BLOOD LOSS: Less than 50 mL. FLUIDS: 2 liters. FINDINGS: Very thickened, difficult to grab gallbladder, extensive inflammation and edema around the gallbladder. Dense adhesions were noted between the gallbladder, omentum, liver and duodenum. SPECIMENS: Gallbladder. DRAINS: None. COMPLICATIONS: None. DISPOSITION: Stable, transport to recovery. INDICATIONS: This is a 42-year-old male who presented with a few day history of acute worsening of chronic pain that had been going on for about a month. [place] foods caused him increased discomfort. He had nausea and vomiting. The patient was noted to have a white count. The patient was assessed to have chronic cholecystitis as the imaging studies were felt to be minimally abnormal according to Radiology; however, the patient's history was good for cholecystitis thought to be perhaps chronic based on the time. The patient was assessed to be in need for cholecystectomy. Procedure, risks and benefits were explained to the patient. Risks included but were not limited to infection, bleeding, pain, injury to surrounding structures, possible need for open surgery, possible need for further procedures in the future. The patient understood and consented. Grain Elevator Operator was used to help with translation. OPERATIVE NOTE: The patient was brought down to the operating room and placed on the table in supine position. After adequate general anesthesia was established, the patient was prepped and draped in usual sterile fashion. Antibiotics were already given. SCDs were placed. Timeout was called. I began by placing a Veress needle in the left upper quadrant. I was able to insufflate on the first attempt. This was replaced with a 5 mm port, placed with the Optiview technique. There was no evidence of any injury to the underlying structures. We then entered safely. We placed a 12 mm port at the umbilicus and 2 more 8 mm ports in the right side of the abdomen. We then replaced the 5 mm port with an 8 mm port under direct vision. The gallbladder was very thickened, tense, unable to be grabbed. We began by aspirating about 100 mL of thick bile that decompressed the gallbladder, but it was still very thick and difficult to grab. Therefore, I thought it would be best to place a stitch in the gallbladder to assist us with elevating the gallbladder over the liver edge. A 0 silk stitch was passed into the abdomen as well as two Ray-Tecs. We docked the robot and placed the patient in reverse Trendelenburg position and rotated to the left. I then moved to the console. I began by placing the silk stitch into the gallbladder fundus and then using that to elevate the gallbladder. This worked very well. Another stitch was placed further down to help us elevate even more. I began by taking down the adhesions. It turns out the patient had acute cholecystitis as everything was very inflamed and very edematous. We did have some bleeding throughout the case, which was related to the inflammation, but this was easily stopped with a little bit of pressure. We slowly took down all the adhesions and then dissected out the triangle of [place]. I was able to clearly identify the cystic duct, cystic artery and a critical view. I tried to have an extra large critical view just to make absolutely sure. I could see the cystic duct clearly go from gallbladder to the common duct. Therefore, I was comfortable with that, the artery I dissected out as well and felt comfortable that we had the artery. Two clips were placed distally, 1 proximally and the cystic duct and cystic duct was divided sharply. Clips were placed on either side of the cystic artery and that was divided sharply. We then began to remove the gallbladder from the bed. This actually also proved to be challenging as it was densely inflamed and adhered to the liver and at times it was difficult to figure out the exact plane. Initially, I thought the bleeding was because I had entered into the liver turned out that it was just the thick rind around the gallbladder that I got into that which was causing the bleeding. Once I reestablished the correct plane, then I could see that I was not in the liver at all. We eventually removed the gallbladder from the bed, placed inside the stitch was still with it as well as the needle. There was a pool of blood in the fossa as a result of all the dissection, but I did not see anything pumping at this point, so I figured that it was just fluid that had accumulated. I saw no other concerns at this point. I then converted back to a laparoscopic case. We used the suction manager cleaning to clean out the area as I thought this was just accumulated. The bed was completely dry. The clips were in place. There was no evidence of any bleeding or bile duct leak. We thoroughly washed out the area and suctioned it out. Everything looked very good. No leaking from the cystic duct. We removed both Ray-Tecs. We placed in the specimen and the needle of a silk stitch in the EndoCatch bag and then removed it from the umbilical site. We had to extend the umbilicus. I used the existing umbilical hernia opening to go through, but we had to open this up even further. The gallbladder was very large and very thick and did not come through the original opening easily, so I did enlarge that fascial opening. Once we did that, we then desufflated the abdomen completely and removed the ports. Additional local was injected into all the sites. Using an open technique, we closed the umbilical port site with a [id number] stitch and closed very nicely. Skin was closed with 4-0 Monocryl subcuticular stitches. Skin was cleaned and dried. Dermabond was placed. The patient tolerated the procedure well. There were no complications. All counts were correct at the end of the case. I spoke with the son at the end of the case and gave an update. He was appreciative. JOB# [id number] GREER/KOBI DOW
[2018-08-02] MEDS: HumaLOG SUB-Q SCH
[2018-08-02] MEDS: NORCO 5/325 PO PRN ×3 (05:05→16:53)
[2018-08-02] MEDS: ZOSYN/NS 4.5GM/100ML 4.5 GM/100 ML VIAL IV SCH (05:07)
[2018-08-02 05:11] LABS: Alanine Aminotransferase 242 units/L (7-56); Albumin 2.8 g/dL (3.9-5); BUN/Creatinine Ratio 10; Blood Urea Nitrogen 9 mg/dL (9-20); Calcium 7.5 mg/dL (8.4-10.2); Hemolysis Index 8
[2018-08-02 05:12] LABS: Hemoglobin 12.8 gm/dl (11.8-15.2); Mean Corpuscular HGB Conc 35 % (32-34); Mean Corpuscular Volume 88 fl (84-94); Platelet Count 166 K/mm3 (140-440); Red Blood Count 4.19 M/mm3 (3.65-5.03); Red Cell Distribution Width 13.1 % (13.2-15.2)
[2018-08-02 07:23] LABS: Anisocytosis 1+; Basophils % (Manual) 0 % (0.0-1.8); Platelet Estimate Consistent w Auto; Total Cells Counted 100
[2018-08-02] MEDS: PEPCID IV SCH ×2 (07:42→10:00)
--- NOTE | 2018-08-02 10:50 | Progress Note ---
Assessment and Plan - Patient Problems (1) Cholecystitis Current Visit: Yes Status: Acute Plan to address problem: Pt stable. s/p robotic assisted cholecystectomy - 08/01/18 - POD#1. Looks well. May advance diet. Recs: 1) Advance diet. If tolerated, d/c home 2) Augmentin to complete 7 day therapy 3) May shower tomorrow. Pat dry wounds 4) Walk frequently. No strenuous activity 5) f/u in clinic in 7-10 days. Please call with questions. Subjective Date of service: 08/02/18 Patient Reports: Positive: no new complaints, feels better, tolerating liquids well. Negative: nausea, vomiting Objective Vital Signs - 12hr 08/01/18 08/02/18 08/02/18 23:20 00:06 04:30 Temperature 98.2 F 98.6 F Pulse Rate 68 80 Respiratory 18 20 20 Rate Blood Pressure 105/50 108/66 O2 Sat by Pulse 98 89 Oximetry 08/02/18 08/02/18 08/02/18 05:05 06:05 07:43 Temperature 98.0 F Pulse Rate 85 Respiratory 18 18 16 Rate Blood Pressure 127/68 O2 Sat by Pulse 95 Oximetry 08/02/18 10:20 Temperature Pulse Rate Respiratory Rate Blood Pressure O2 Sat by Pulse 95 Oximetry - General physical appearance no distress, no pain - Respiratory normal expansion, normal respiratory effort - Abdomen soft, not tender, distended (minimal?), not guarding, not rigid, surgical scars (C/d/I) - Integumentary no rash, no growths, no abnormal pigmentation - Psychiatric oriented to time, oriented to person, oriented to place, speech is normal, memory intact - Labs 08/02/18 04:22 08/02/18 04:22 Diabetes panel 08/02/18 Range/Units 04:22 Sodium 142 (137-145) mmol/L Potassium 3.7 (3.6-5.0) mmol/L Chloride 104.8 (98-107) mmol/L Carbon Dioxide 25 (22-30) mmol/L BUN 9 (9-20) mg/dL Creatinine 0.9 (0.8-1.5) mg/dL Glucose 169 H (75-100) mg/dL Calcium 7.5 L (8.4-10.2) mg/dL AST 299 H (5-40) units/L ALT 242 H (7-56) units/L Alkaline Phosphatase 111 (35-129) units/L Total Protein 5.8 L (6.3-8.2) g/dL Albumin 2.8 L (3.9-5) g/dL Calcium panel 08/02/18 Range/Units 04:22 Calcium 7.5 L (8.4-10.2) mg/dL Albumin 2.8 L (3.9-5) g/dL Pituitary panel 08/02/18 Range/Units 04:22 Sodium 142 (137-145) mmol/L Potassium 3.7 (3.6-5.0) mmol/L Chloride 104.8 (98-107) mmol/L Carbon Dioxide 25 (22-30) mmol/L BUN 9 (9-20) mg/dL Creatinine 0.9 (0.8-1.5) mg/dL Glucose 169 H (75-100) mg/dL Calcium 7.5 L (8.4-10.2) mg/dL Adrenal panel 08/02/18 Range/Units 04:22 Sodium 142 (137-145) mmol/L Potassium 3.7 (3.6-5.0) mmol/L Chloride 104.8 (98-107) mmol/L Carbon Dioxide 25 (22-30) mmol/L BUN 9 (9-20) mg/dL Creatinine 0.9 (0.8-1.5) mg/dL Glucose 169 H (75-100) mg/dL Calcium 7.5 L (8.4-10.2) mg/dL Total Bilirubin 1.70 H (0.1-1.2) mg/dL AST 299 H (5-40) units/L ALT 242 H (7-56) units/L Alkaline Phosphatase 111 (35-129) units/L Total Protein 5.8 L (6.3-8.2) g/dL Albumin 2.8 L (3.9-5) g/dL
[2018-08-02] MEDS: SODIUM CHLORIDE FLUSH SYRINGE 10 ML IV SCH (11:04)
--- NOTE | 2018-08-02 13:24 | Discharge Summary ---
Providers - Providers Date of Admission: 07/30/18 11:30 Attending physician: RICHARD BUCKLEY MD 07/30/18 Consult to Case Management [CONS] Routine Services Needed at Discharge: Home Health Services 07/30/18 12:13 Consult to Physician [CONS] Routine Comment: Consulting Provider: ROSA ELIAS Physician Instructions: Reason For Exam: cholecystitis Primary care physician: [facility] MD NAFISA Hospitalization Condition: Critical Hospital course: 43-year-old woman who presented to the hospital with abdominal pain. She was found to have acute cholecystitis. She went on to have cholecystectomy after which she improved and was discharged home on a course of antibiotics. meds were optimized for uncontrolled diabetes type 2. Diagnosis Acute cholecystitis Sepsis Uncontrolled type 2 diabetes Disposition: TO HOME OR SELFCARE Time spent for discharge: 33 mins Core Measure Documentation - Palliative Care Palliative Care/ Comfort Measures: Not Applicable - Core Measures Any of the following diagnoses?: none Exam - Constitutional Vitals: Temp Pulse Resp BP Pulse Ox 98.0 F 85 16 127/68 95 08/02/18 07:43 08/02/18 07:43 08/02/18 07:43 08/02/18 07:43 08/02/18 10:20 General appearance: Present: no acute distress, well-nourished - EENT Eyes: Present: PERRL ENT: hearing intact, clear oral mucosa - Neck Neck: Present: supple, normal ROM - Respiratory Respiratory effort: normal Respiratory: bilateral: CTA - Cardiovascular Heart Sounds: Present: S1 & S2. Absent: rub, click - Extremities Extremities: pulses symmetrical, No edema Peripheral Pulses: within normal limits - Abdominal General gastrointestinal: Present: soft, non-tender, non-distended, normal bowel sounds Male genitourinary: Present: normal - Integumentary Integumentary: Present: clear, warm, dry - Musculoskeletal Musculoskeletal: gait normal, strength equal bilaterally - Psychiatric Psychiatric: appropriate mood/affect, intact judgment & insight - Neurologic Neurologic: CNII-XII intact, moves all extremities Plan [facility] [Primary Care Provider] - 7 Days Prescriptions: Sitagliptin Phos/Metformin HCl [Janumet 50-1,000 mg Tablet] 1 each PO BID #60 tablet HYDROcodone/APAP 5-325 [[place] 5-325 mg TAB] 2 each PO Q6H PRN #30 tablet PRN Reason: Pain, Moderate (4-6)
[2018-08-02 16:38] VITALS: BP 128/64
== END 2018-08-02 18:24 | disposition home or self-care (01) | DRG 418 ==
LOC: ED 05:23 → 3B-SURG 11:30
PROVIDERS: ADMIT Internal Medicine; ATTEND Internal Medicine
PROC: 0FT44ZZ Resection of Gallbladder, Percutaneous Endoscopic Approach (ICD-10-PCS; principal; 2018-08-01)
PROC: 0DNU4ZZ Release Omentum, Percutaneous Endoscopic Approach (ICD-10-PCS; 2018-08-01)
PROC: 0DN94ZZ Release Duodenum, Percutaneous Endoscopic Approach (ICD-10-PCS; 2018-08-01)
PROC: 0FN04ZZ Release Liver, Percutaneous Endoscopic Approach (ICD-10-PCS; 2018-08-01)
PROC: 8E0W4CZ Robotic Assisted Procedure of Trunk Region, Percutaneous Endoscopic Approach (ICD-10-PCS; 2018-08-01)
DX: K81.0 Acute cholecystitis (principal); R65.10 Systemic inflammatory response syndrome (SIRS) of non-infectious origin without acute organ dysfunction; F17.200 Nicotine dependence, unspecified, uncomplicated; F17.210 Nicotine dependence, cigarettes, uncomplicated; K82.8 Other specified diseases of gallbladder; Z71.6 Tobacco abuse counseling
CPT/HCPCS: 36415; 74177; 76705; 80048; 80053; 80076; 81001; 82962; 83036; 83690; 85007; 85025; 88304; 88341; 88342; 99406; G0378; J0330; J1170; J1650; J1815; J1885; J2250; J2270; J2405; J2543; J2704; J2710; J3010; J7030; Q9967